=== PATIENT | male | born 1995 | race Caucasian/White ===

== ENCOUNTER 2023-04-02 07:56 | Emergency (ER) | payer OTHER ==
[~2023-04-02] VITALS: Ht 188 cm; Wt 145.1 kg
[2023-04-02 08:00] VITALS: BP_SYST 141; PULSE 67; RESP 17; TEMP 98.4; O2SAT 98
[2023-04-02] MEDS ORDERED: NABU-140 PO (11:09)
[2023-04-02 11:15] VITALS: BP_SYST 141; PULSE 67; RESP 17; TEMP 98.4; O2SAT 98
== END 2023-04-02 11:17 | disposition home or self-care (01) ==
LOC: SED 07:56
DX: S16.1XXA Strain of muscle, fascia and tendon at neck level, initial encounter (principal); Z79.899 Other long term (current) drug therapy; V89.2XXA Person injured in unspecified motor-vehicle accident, traffic, initial encounter; Y93.89 Activity, other specified; Y92.89 Other specified places as the place of occurrence of the external cause; Y99.8 Other external cause status
CPT/HCPCS: 72040-TC; 99283